=== PATIENT | male | born 1985 ===

== ENCOUNTER 2023-10-23 10:18 | Emergency (ER) | payer OTHER, SELFPAY ==
--- NOTE | ~2023-10-23 | XR_ITS ---
EXAMINATION: XR ELBOW, LEFT CLINICAL INFORMATION: Pain COMPARISON: None available. TECHNIQUE: AP, lateral, and oblique views of the left elbow. FINDINGS: No acute visible fracture or dislocation. Slight enthesopathy at the triceps tendon insertion site. Joint space alignment are otherwise maintained. No large elbow joint effusion. Soft tissue edema along the medial epicondyle XR/XR elbow LT min 3V IMPRESSION: 1. No acute visible fracture or dislocation. 2. Slight enthesopathy at the triceps tendon insertion site. 3. Soft tissue edema along the medial epicondyle.
[2023-10-23 10:33] VITALS: BP 175/95; PULSE 77; RESP 16; TEMP 36.3; O2SAT 97; BMI 35.3
--- NOTE | 2023-10-23 13:10 | ED_ITS ---
HPI - Extremity Problem General Chief complaint: Extremity Injury, Upper Stated complaint: L arm pain work inj Time Seen by Provider: 10/23/23 13:08 Source: patient Mode of arrival: ambulatory Limitations: no limitations History of Present Illness HPI Narrative: 38 year old male with no significant pmhx presents to the ED today from work for evaluation of left elbow pain x1 hour. Admits to picking up a heavy object at work when he felt a pop in his left elbow. Endorses pain to the medial aspect of his elbow. Pain is exacerbated with arm movements and relieved with keeping his arm adducted. Denies fall or blunt injury. Denies fever, chills, N/V, numbness/tingling/weakness of the extremity. Related Data Allergies Allergy/AdvReac Type Severity Reaction Status Date / Time No Known Allergies Allergy Verified 10/23/23 13:34 Review of Systems Review of Systems: Constitutional: No fever, chills, fatigue, night sweats, weight changes ENT/Mouth: No ear pain, hearing loss, nasal congestion, sinus pain, rhinorrhea, sore throat Eyes: No eye pain, swelling, redness, vision changes, discharge Cardio: No chest pain, palpitations, [place], orthopnea, peripheral edema Pulm: No SOB, cough, sputum, wheezing, dyspnea, hemoptysis GI: No nausea, vomiting, hematemesis, abdominal pain, diarrhea, constipation, hematochezia, melena : No irregular bleeding, dysuria, frequency, urgency, hesitancy, hematuria, flank pain, urinary flow changes, urinary incontinence or retention MSK: No back pain, neck pain, joint pain, myalgias, +left elbow pain Skin: No lesions, rashes Neuro: No weakness, numbness, paresthesias, LOC, dizziness, headache All other systems reviewed and are negative. [facility] Past Medical History Attestation statement: The following information was validated with the patient. Source: old records reviewed and nursing notes reviewed Physical Exam Vital Signs: Vital Signs: Last Vital Signs Temp 97.3 F 10/23/23 10:33 Pulse 77 10/23/23 10:33 Resp 16 10/23/23 10:33 BP 175/95 H 10/23/23 10:33 Pulse Ox 97 10/23/23 10:33 O2 Del Method Room Air 10/23/23 10:33 BMI result Body Mass Index 35.3 Hypertensive, otherwise wnl. Const: General: cooperative, healthy appearing, comfortable and no acute distress Orientation/consciousness: patient oriented x3 Limitations: no limitations HEENT: Head: Yes normal to inspection, Yes No palpable skull fracture present, Yes normocephalic and Yes atraumatic Eyes: General: appearance normal, both eyes and all related structures Conjunctivae: conjunctivae normal Sclerae: sclerae normal Pupils: Equal, round and reactive pupils present Neck: Neck: Yes normal visual inspection and Yes full ROM Cardio: Rate: regular rate Rhythm: regular rhythm Skin: General skin exam: no rashes or lesions noted Neuro: Other: Strength 5/5 intact throughout.?Sensation intact to light touch.? Neurovascular intact distally.? General: patient oriented x3 Cranial nerves: Yes Equal, round and reactive pupils present Extrem: Other: + edema noted to the medial aspect of th e elbow. No overlying erythema or wound/laceration. Full ROM intact to flexion and extension of the left elbow, pain elicited with elbow extension. TTP over the medial aspect of the elbow without palpable deformity over the joint. Full ROM intact to left fingers, wrist, and shoulder. NV intact distally. Fast Food Restaurant Manager strength intact. Finger to thumb opposition intact. General: Yes capillary refill normal and Yes normal exam except as noted Course Course Course Narrative: 1350-- xr of left elbow shows soft tissue edema long the medial epicondyle which may be consistent with ligament tear vs tendinitis. there is no visible fracture or dislocation which correlates to physical exam. Case discussed with on-call orthopedic doctor, Dr. Bonilla, who advises sling with outpatient ortho follow up. Discussed results and plan with patient who is agreeable. I have offered to send pain medications along with prednisone to patients pharmacy however he declines, stating that he does not wish to take any medications. Patient has remained stable throughout ED visit today. Discussed worrisome signs and symptoms and when to return to the ED. All questions answered at this time. Patient is agreeable with disposition and stable for discharge. Medical Decision Making Medical Decision Making MDM Narrative: 38 year old male with no significant pmhx presents to the ED today from work for evaluation of left elbow pain x1 hour. Patient hypertensive, vitals otherwise wnl. Nontoxic appearing and in NAD. On examination, there is edema noted to the medial aspect of the elbow. No overlying erythema or wound/laceration. Full ROM intact to flexion and extension of the left elbow, pain elicited with elbow extension. TTP over the medial aspect of the elbow without palpable deformity over the joint. Full ROM intact to left fingers, wrist, and shoulder. NV intact distally. Fast Food Restaurant Manager strength intact. Finger to thumb opposition intact. No rashes. Clinical concern for fracture, dislocation, ligament/tendon injury, tendinitis. Unlikely septic joint, lyme, gout, pseudogout, NV compromise, threat to limb, compartment syndrome, DVT. Xrays ordered in triage. Plan to review and re- evaluate. Differential Diagnosis Differential Diagnoses: The differential diagnosis associated with the presentation includes as above Admission/Observation not indicated Consult Healthcare Provider Management of the patient was discussed with: Public Health Teacher (Dr. Bonilla (ortho)) Independent Interpretation I performed an independent interpretation of an: Plain X-Ray Interpretation: I have personally reviewed xray and agree with radiologist's interpretation. Radiology Impression Discussion of test interpretation with radiology: I have reviewed the radiologist's reading. Radiologist Impression: XR elbow LT min 3V IMPRESSION: 1. No acute visible fracture or dislocation. 2. Slight enthesopathy at the triceps tendon insertion site. 3. Soft tissue edema along the medial epicondyle. Prescription Management I considered prescription management with: Pain Medication and Other (steroid) Social Determinants Patient?s care significantly limited by Social Determinants of Health including: Other Social Determinant of Health Procedures Orthopedic Splinting/Casting Injury #1: Side: left Upper Extremity Injury Location: elbow Upper Extremity Immobilizer: sling/shoulder immobilizer and Vega wrap Discharge Plan Discharge Clinical Impression: Medial epicondylitis, left elbow, Enthesopathy of elbow Patient Disposition: Home, Self-Care Instructions: How to Use a Sling (ED) Additional Instructions: You were seen in the ED today for left elbow pain. The xrays of your left elbow show: 1. No acute visible fracture or dislocation. 2. Slight enthesopathy at the triceps tendon insertion site. 3. Soft tissue edema along the medial epicondyle. These findings may be consistent with inflammation of the ligament vs partial/complete tear. On-call orthopedic physician recommends sling and out patient ortho follow up. You have declined any prescription medications today. If you begin to have pain at home, you may take OTC tylenol or motrin as needed. You have been provided with a sling. Ensure gentle movements with left arm/ elbow to avoid pain/ reinjury. You have been provided a referral to our orthopedic doctor, Dr. Ortiz. Please call them tomorrow morning to schedule an appointment. They will not call you. If symptoms persist or worsen please return to the ED. In the case of an emergency call 911. [facility]: [phone] Referrals: [facility] [Provider Group] Interventions: ED Discharge Assessment Last Done: 10/23/23 14:16 Discharge Date/Time: 10/23/23 14:18
== END 2023-10-23 14:18 | disposition home or self-care (01) ==
PROVIDERS: Emergency Provider Emergency Medicine
DX: S59.902A Unspecified injury of left elbow, initial encounter (principal); M77.02 Medial epicondylitis, left elbow; M77.8 Other enthesopathies, not elsewhere classified; X58.XXXA Exposure to other specified factors, initial encounter; Y93.9 Activity, unspecified; Y92.9 Unspecified place or not applicable; Y99.0 Civilian activity done for income or pay
CPT/HCPCS: 29105; 73080; 99283

== ENCOUNTER 2023-11-03 10:14 | Outpatient (AMB) | payer OTHER, SELFPAY ==
--- NOTE | 2023-11-03 10:20 | A.OFFVIS_ITS ---
Intake Vital Signs 11/03/23 10:27 Height 6 ft Weight 260 lb BMI 35.3 Handedness Left Intake Visit Reasons: New Pt - left elbow pain Intake Note: Rohan is a 38 year old left hand dominant male who presents today as a new patient for a evaluation of his left elbow pain, DOI 10/23/23. Patient reports picking up a heavy object at work when he felt a pop in his left elbow. Currently is still having pain, he states that his pain is mainly in the bicep. He states when he first injured it he felt a tingling sensation up and down his left arm. Allergies No Known Allergies Allergy (Verified 11/03/23 10:23) HPI New Pt - left elbow pain HPI Details 38-year-old left hand dominant male who presents in the office today, as a new patient, for an evaluation of left elbow pain. The patient presented to the ED on 10/23/2023 status post picking up a heavy object while at work and he felt a pop in the elbow. The case was discussed with Dr. Bonilla and the patient was placed in a sling. While in the office today the patient report picking up a heavy object while at work and feeling a pop in the left elbow. He reports he is still having pain. He claims the pain is mainly located in the bicep area. He states when the injury first occurred he felt a tingling sensation [facility] Social History (Updated 11/03/23 @ 10:26 by Darryl Salvador) Alcohol intake: current Patient Tobacco Use Status: Never used Tobacco Current occupational status: employed Review of Systems Const All systems reviewed & are unremarkable except as noted in HPI and below Physical Exam Vital Signs: BMI result Body Mass Index 35.3 Const General: cooperative and no acute distress Orientation/consciousness: patient oriented x3 Resp Effort & Inspection: normal respiratory effort and able to speak in complete sentences Cardio Peripheral pulses: Peripheral pulses 2+ throughout Skin General skin exam: no rashes or lesions noted Neuro General: patient oriented x3 Extrem Other: Left upper extremity: Resolving ecchymosis along the posterior lateral aspect of the proximal forearm. Tenderness to palpation to the area where the bicep tendon is supposed to attach. There is not bicep tendon palpable on exam and has weakness with pronation and supination. Full ROM. NVI. Assessment & Plan Assessment & Plan (1) Rupture of left biceps tendon: Code(s): S46.212A - Strain of muscle, fascia and tendon of other parts of biceps, left arm, initial encounter Qualifiers: Encounter type: initial encounter Qualified Code(s): S46.212A - Strain of muscle, fascia and tendon of other parts of biceps, left arm, initial encounter Plan Mr. Bermudez is a 38-year-old left hand dominant male who presents in the office today, as a new patient, for an evaluation of left elbow pain. The patient presented to the ED on 10/23/2023 status post picking up a heavy object while at work and he felt a pop in the elbow. The case was discussed with Dr. Bonilla and the patient was placed in a sling. While in the office today the patient report picking up a heavy object while at work and feeling a pop in the left elbow. He reports he is still having pain. He claims the pain is mainly located in the bicep area. He states when the injury first occurred he felt a tingling sensation Dr. Ortiz was available to see the patient with me while in the office today. Risk and benefits of surgical intervention for distal bicep tendon repair including airline station agent strength, weakness with screwdriver motion and cosmetic appearance at this point in time were discussed. The patient has decided to proceed with non-operative intervention. My card was provided to the patient should he change his mind and he understands he would have to change his mind or he would have to notify the office before 11/07/2023 for surgical intervention to be attempted. Even then there is no guarantee that we would be able to retrieve the bicep tendon for appropriate placement. Follow up will be PRN unless he decides to proceed with surgical intervention, or sooner if needed. X-rays of the left elbow, obtained on 10/23/2023, revealed: 1. No acute visible fracture or dislocation. 2. Slight enthesopathy at the triceps tendon insertion site. 3. Soft tissue edema along the medial epicondyle. Patient Instructions: Scribed by [facility], for Fatoumata Burnham PA-C on 11/03/2023 at 10:16 am, EST. Coding Level of Care Code New Pt Level 4 (90681) Diagnoses Rupture of left biceps tendon, initial encounter S46.212A Encounter type: initial encounter
[2023-11-03 10:27] VITALS: BMI 35.3
== END 2023-11-03 10:50 | disposition home or self-care (01) ==
PROVIDERS: Visit Provider Physician Assistant
DX: S46.212A Strain of muscle, fascia and tendon of other parts of biceps, left arm, initial encounter (principal)
CPT/HCPCS: 99204

== ENCOUNTER → 2023-11-03 10:14 | Outpatient (BNVA) | payer OTHER, SELFPAY | PROVIDERS: Visit Provider Physician Assistant | DX: S46.212A Strain of muscle, fascia and tendon of other parts of biceps, left arm, initial encounter (principal) | CPT/HCPCS: 99202 ==

== ENCOUNTER 2023-11-08 13:40 | Day surgery (SDC) | payer OTHER, SELFPAY ==
--- NOTE | ~2023-11-08 | FL_ITS ---
EXAMINATION: XR FLUOROSCOPY WITH IMAGES IN THE OPERATING ROOM CLINICAL INFORMATION: Left distal biceps tendon repair COMPARISON: Left elbow 10/23/2023 TECHNIQUE: Fluoroscopy Supervised By: Dr. Ortiz. Fluoroscopy Time: 10.12 seconds. Cumulative Dose: 0.4846 mGy. DAP: 0.08509 Gycm2. Images: 2. FINDINGS: The mini C-arm was used for fluoroscopy. AP and lateral views of the elbow and proximal shaft of the radius and ulna demonstrate an Endobutton along the proximal shaft of the radius. FL/FL guidance in OR IMPRESSION: Fluoroscopy for distal biceps tendon repair.
[2023-11-08 14:17] VITALS: BMI 35.5
[2023-11-08 14:20] VITALS: BP 131/73; PULSE 83; RESP 18; TEMP 36.3; O2SAT 97
[2023-11-08] MEDS: Lactated Ringers 1,000 ML 50 ML IVCONT (14:37)
--- NOTE | 2023-11-08 15:05 | PC.NURSE ---
report given to Eduardo Crump RN to continue care
--- NOTE | 2023-11-08 15:06 | HO.ANESPROP2 ---
HPI - Anesthesia Eval Consult details Narrative: biceps tendon repair left PMFSH Active Problems Active Problems: All Active Problems (Updated 11/03/23 @ 11:06 by Mary Lopez) Rupture of left biceps tendon (Acute) Family History Family history of problems with anesthesia: No Surgical History History of Problems with Anesthesia: No Social History Social History Alcohol intake: current Patient Tobacco Use Status: Never used Tobacco Use of substances other than those prescribed or required for medical reasons: No Are you DNR?: No Advance Directives: No Advance Directives Information Provided: Yes Current occupational status: employed Meds Allergies Allergy/AdvReac Type Severity Reaction Status Date / Time No Known Allergies Allergy Verified 11/03/23 10:23 Active Medications: Current Medications Lactated Ringer's (Lr) 1,000 mls @ 50 mls/hr IVCONT .Q20H BILLIE Last Admin: 11/08/23 14:37 Dose: 50 mls/hr Home Medications Medication Instructions Recorded Confirmed Last Taken Type No Known Home Meds 11/03/23 11/08/23 Unknown History Exam Height,Weight and Vital Signs: Height 6 ft Weight 118.841 kg Last Vital Signs Temp 97.3 F 11/08/23 14:20 Pulse 83 11/08/23 14:20 Resp 18 11/08/23 14:20 BP 131/73 11/08/23 14:20 Pulse Ox 97 11/08/23 14:20 O2 Del Method Room Air 11/08/23 14:20 Airway Mallampati Class: II TM Dist: >3cm Neck ROM: Full Heart: rrr Lungs: cta Assessment and Plan Assessment Anesthesia Assessment: Anesthesia Plan Discussed and Chart Reviewed Final Anesthetic Review Family History of Problems with Anesthesia: No History of Problems with Anesthesia: No NPO: Yes ASA Class: III Final Preanesthetic Review: No Changes in Pt Med Stat, Meds/Allgs Chart Reviewed, Consent Obtained/Reviewed and Anes Risks/Benef Reviewed Patient Risk: Intermediate Procedure Risk: Intermediate Anesthetic Plan Anesthetic Plan: GA, Regional Block and Agree w/ Assess. and Plan Disposition: Standard PACU
--- NOTE | 2023-11-08 16:19 | MHC.SHP ---
Pre-Procedural Eval Section A - 24 Hr Update-Section A only Date of Service: 11/08/23 The patient is an INPATIENT: No Changes since office visit: No Cold of Flu in the past 2 weeks, No New Medical Problems, No Changes in Medication and No Patient answered all questions The patient has been examined within 24 hours of the surgical procedure. The History & Physical has been completed within 30 days and I have reviewed it.: Yes Section B - Complete if H&P > 30 days Chief Complaint: Strain of muscle, fascia and tendon of other parts Allergies: Allergies Allergy/AdvReac Type Severity Reaction Status Date / Time No Known Allergies Allergy Verified 11/03/23 10:23 Plan I have reviewed the history and physical and performed a pertinent physical examination on my patient. No changes have occurred unless specified. Time Spent With Patient Time: Total time managing care of this patient today ____ minutes.
--- NOTE | 2023-11-08 18:40 | PM.OP ---
Brief Operative Note Date of Service: 11/08/23 Pre-op diagnosis: Left distal biceps rupture Post-op diagnosis: same Procedure: Left distal biceps repair Implants: Arthrex distal biceps suture button Surgeon: Darrell Ortiz MD Anesthesia: GLMA and regional Was an Delivery Table Feeder used for this Procedure?: Yes Delivery Table Feeder: Fatoumata Burnham Estimated blood loss (mL): 10 Tourniquet time (min): 47 IV fluids (mL): 1,000 Pathology: none sent Condition: stable Disposition: PACU
[2023-11-08 18:44] VITALS: BP 144/85; PULSE 77; RESP 18; TEMP 36.2; O2SAT 98
[2023-11-08 18:49] VITALS: BP 135/85; PULSE 69; RESP 20; O2SAT 98
[2023-11-08 18:54] VITALS: BP 143/87; PULSE 89; RESP 20; O2SAT 97
[2023-11-08 18:59] VITALS: BP 151/97; PULSE 81; RESP 20; O2SAT 94
[2023-11-08 19:15] VITALS: BP 139/94; PULSE 75; RESP 20; TEMP 36.1; O2SAT 94
--- NOTE | 2023-11-10 17:48 | P.OP_ITS ---
Operative Note Operative Note Date of Service: 11/08/23 Narrative: Date of Service: 11/08/23 Pre-op diagnosis: Left distal biceps rupture Post-op diagnosis: same Procedure: Left distal biceps repair Implants: Arthrex distal biceps suture button Surgeon: Darrell Ortiz MD Anesthesia: GLMA and regional Was an Calender Machine Operator Helper used for this Procedure?: Yes Calender Machine Operator Helper: Fatoumata Burnham Estimated blood loss (mL): 10 Tourniquet time (min): 47 IV fluids (mL): 1,000 Pathology: none sent Condition: stable Disposition: PACU Procedure in detail: Patient was brought to the operating room and placed supine on the surgical table. He was prepped and draped in standard sterile fashion and a time out was called to identify proper site, proper procedure and IV antibiotics per weight were administered. I began by localizing the bicipital tuberosity on the proximal radius with fluoroscopy. I then made a transverse incision at this level. The cephalic vein was identified and the V between the venous structures was also identified and I digitally dissected up into the biceps sheath. There was expression of fluid and a fully torn biceps was palpated and then identified. There was a very small strand of fibrous tissue still remaining and this likely prevented further retraction. The tendon itself was beginning to scar and required debridement. I also released it proximally from the fibrous tissue that had begun to develop along the sheath. This resulted in a firm but slightly anatomically smaller biceps tendon. I used a FiberWire whipstitch approximately 6 cm from the distal portion and fit this through an 8 graft Sizer. Was very satisfied with the size of the tendon and so I dissected down bluntly to the bicipital insertion on the proximal radial tuberosity. I then drilled a beefpin bicortically and confirmed its location with fluoroscopy. I then over-reamed the 1st cortex with an 8 mm Reamer and passed the button through both cortices. The button was flipped on the back cortices and the biceps tendon was dunked into the unicortical drilled tuberosity opening. I then took the elbow through a full range of motion was satisfied with the stability and integrity of the repair. I then tied the FiberWire suture and irrigated copiously. Tourniquet was let down. There was no brisk bleeding. A layered closure with absorbable suture and skin glue was placed. Patient was placed into a well-padded sterile dressing and extubated and brought to recovery room in stable condition. Fluoroscopy confirmed location of the endo button. There were no known complications.
== END 2023-11-08 19:30 | disposition home or self-care (01) ==
PROVIDERS: Visit Provider Orthopaedic Surgery
PROC: (CPT 24341; principal; 2023-11-08 16:10)
DX: S46.212A Strain of muscle, fascia and tendon of other parts of biceps, left arm, initial encounter (principal); M79.622 Pain in left upper arm; M25.522 Pain in left elbow; X50.0XXA Overexertion from strenuous movement or load, initial encounter; X50.9XXA Other and unspecified overexertion or strenuous movements or postures, initial encounter; Y93.89 Activity, other specified; Y92.69 Other specified industrial and construction area as the place of occurrence of the external cause; Y99.0 Civilian activity done for income or pay
CPT/HCPCS: 24342; C1713; J0131; J0171; J0665; J0690; J1100; J2250; J2405; J2704; J3010

== ENCOUNTER → 2023-11-08 13:40 | Outpatient (BNV) | payer OTHER, SELFPAY | PROVIDERS: Visit Provider Orthopaedic Surgery | DX: S46.212A Strain of muscle, fascia and tendon of other parts of biceps, left arm, initial encounter (principal) | CPT/HCPCS: 24342 ==

== ENCOUNTER 2023-11-23 13:36 | Outpatient (AMB) | payer OTHER, SELFPAY ==
--- NOTE | 2023-11-23 13:59 | A.OFFVIS_ITS ---
Intake Intake Visit Reasons: PO-Lt Distal Biceps Repair 11/08/23 NE Intake Note: Rohan is a 38 year old - hand dominant male who presents today for a post op appointment s/p Lt Distal Biceps Repair 11/08/23 NE. Patient reports he is having pain where the incision site is. He has be noticing that his MF, RF and pinky finger are numb since surgery. Allergies No Known Allergies Allergy (Verified 11/23/23 14:01) HPI PO-Lt Distal Biceps Repair 11/08/23 NE HPI Details 38-year-old left hand dominant male who presents in the office today 2 weeks status post left shoulder distal biceps repair, which was performed on 11/08/[address] Ortiz. Patient reports having pain at the incision site. He also reports numbness in the middle, ring, and little fingers since surgery. [facility] Social History Alcohol intake: current Patient Tobacco Use Status: Never used Tobacco Current occupational status: employed Review of Systems Const All systems reviewed & are unremarkable except as noted in HPI and below Physical Exam Const General: cooperative, healthy appearing and no acute distress Resp Effort & Inspection: normal respiratory effort and able to speak in complete sentences Cardio Rate: regular rate Peripheral pulses: Peripheral pulses 2+ throughout GI Palpation (GI): Soft to palpation Skin Lesions: no lesions Rashes: no rashes Extrem Other: Left shoulder: Bicep tendon incision site is clean, dry, and intact. No surrounding erythema or drainage. No signs of infection. Lacking 40 degrees of forward extension. Reports numbness in the middle, ring, and little finger tips. capillary refill is brisk. Radial pulse intact. Assessment & Plan Assessment & Plan (1) Rupture of left biceps tendon: Comment: Left distal bicep repair, 11/08/2023 NE Code(s): S46.212A - Strain of muscle, fascia and tendon of other parts of biceps, left arm, initial encounter Qualifiers: Encounter type: initial encounter Qualified Code(s): S46.212A - Strain of muscle, fascia and tendon of other parts of biceps, left arm, initial encounter Plan Mr. Bermudez is a 38-year-old left hand dominant male who presents in the office today 2 weeks status post left shoulder distal biceps repair, which was performed on 11/08/[address] Ortiz. Patient reports having pain at the incision site. He also reports numbness in the middle, ring, and little fingers since surgery. Dr. Ortiz was available to see the patient with me while in the office today and a collaborative treatment plan was made. New steri-stripes were applied to the incision site. The patient was placed in an elbow brace locked to prevent him from extending the last 30 degrees. This will remain in place for the next 4 weeks during activities. When he is at home resting he may remove the brace. After the end of 4 weeks he may discontinue the use of the brace. A referral to occupational therapy was made in the office today. Follow up will be in 4 weeks, or sooner if needed. Orders: Orders OT Evaluation and Treatment Today S46.212A - Strain of muscle, fascia and tendon of other parts of biceps, left arm, initial encounter Patient Instructions: Scribed by [facility] i d sales, for Fatoumata Chacha HOLDEN on 11/23/2023 at 1:37 pm, EST. Coding Level of Care Code Global (25388) Diagnoses Rupture of left biceps tendon, initial encounter S46.212A Encounter type: initial encounter
== END 2023-11-23 14:56 | disposition home or self-care (01) ==
PROVIDERS: Visit Provider Physician Assistant
DX: S46.212A Strain of muscle, fascia and tendon of other parts of biceps, left arm, initial encounter (principal)
CPT/HCPCS: 99024

== ENCOUNTER → 2023-11-23 13:36 | Outpatient (BNVA) | payer OTHER, SELFPAY | PROVIDERS: Visit Provider Physician Assistant | DX: S46.212D Strain of muscle, fascia and tendon of other parts of biceps, left arm, subsequent encounter (principal) | CPT/HCPCS: 99212 ==

== ENCOUNTER 2023-12-21 10:01 | Outpatient (AMB) | payer OTHER, SELFPAY ==
--- NOTE | 2023-12-21 10:21 | MHC.OFFVIS ---
Intake Visit Reasons: PO-Lt Distal Biceps Repair 11/08/23 NE Intake Note: Rohan is a 38 year old left hand dominant male who presents today for a post op appointment s/p Lt Distal Biceps Repair 11/08/23 NE. Patient reports he is doing well, however he has a question about wanting to return to work full duty. Allergies No Known Allergies Allergy (Verified 11/23/23 14:01) HPI HPI PO-Lt Distal Biceps Repair 11/08/23 NE: Details: 38-year-old left hand dominant male who presents in the office today 6 weeks status post left shoulder distal biceps repair, which was performed on 11/08/[address] Ortiz. I last saw the patient in the office on 11/23/2023 when he was placed in an elbow brace locked to prevent him from extending the last 30 degrees. This was to remain for 4 additional weeks. He was only to remove the brace when at home and resting. After 4 weeks, he can discontinue the brace. He was referred to OT. While in the office the patient reports he is doing well. He would like to return to full-time regular duty. [facility] Social History Alcohol intake: current Patient Tobacco Use Status: Never used Tobacco Current occupational status: employed Review of Systems Const All systems reviewed & are unremarkable except as noted in HPI and below Physical Exam Extrem Other: Left shoulder: Incision site is clean, dry, and intact. No surrounding erythema or drainage. No signs of infection. Full extension and flexion. No varus or valgus laxity. NVI. Assessment & Plan Assessment & Plan (1) Rupture of left biceps tendon: Comment: Left distal bicep repair, 11/08/2023 NE Code(s): S46.212A - Strain of muscle, fascia and tendon of other parts of biceps, left arm, initial encounter Category: Medical Qualifiers: Encounter type: initial encounter Qualified Code(s): S46.212A - Strain of muscle, fascia and tendon of other parts of biceps, left arm, initial encounter Plan Mr. Bermudez is a 38-year-old left hand dominant male who presents in the office today 6 weeks status post left shoulder distal biceps repair, which was performed on 11/08/[address] Ortiz. I last saw the patient in the office on 11/23/2023 when he was placed in an elbow brace locked to prevent him from extending the last 30 degrees. This was to remain for 4 additional weeks. He was only to remove the brace when at home and resting. After 4 weeks, he can discontinue the brace. He was referred to OT. While in the office the patient reports he is doing well. He would like to return to full-time regular duty. Patient was not able to attend occupational therapy, so a new order has been placed today. He will attend a facility closer to home as he [place] hour away. Rehab protocol was printed and given to the patient and a paper copy of the OT prescription. Follow-up will be in 6 weeks, or sooner if needed. Orders: Orders OT Evaluation and Treatment Today S46.212A - Strain of muscle, fascia and tendon of other parts of biceps, left arm, initial encounter Patient Instructions: Scribed by Mary Lopez medical administrative specialist, for Fatoumata Burnham PA-C on 12/21/2023 at 10:03 am, EST.
== END 2023-12-21 10:32 | disposition home or self-care (01) ==
PROVIDERS: Visit Provider Physician Assistant
DX: S46.212A Strain of muscle, fascia and tendon of other parts of biceps, left arm, initial encounter (principal)
CPT/HCPCS: 99024

== ENCOUNTER → 2023-12-21 10:01 | Outpatient (BNVA) | payer OTHER, SELFPAY | PROVIDERS: Visit Provider Physician Assistant | DX: S46.212D Strain of muscle, fascia and tendon of other parts of biceps, left arm, subsequent encounter (principal) | CPT/HCPCS: 99212 ==